=== PATIENT | female | born 1950 | race Caucasian/White ===

== ENCOUNTER 2017-07-27 17:38 | Emergency (ER) | payer OTHER ==
[~2017-07-27] VITALS: Ht 162.6 cm; Wt 95.3 kg
--- NOTE | ~2017-07-27 | EKG ---
[place] [address] [facility] [employer] [place] [address] ELECTROCARDIOGRAM REPORT Name: JESSY ANDERSON Room #: [facility]#: [id number] Admission: 07/27/17 Attend Phys: Discharge: 07/27/17 Date of : 54 Report #: [id number] THIS REPORT FOR: //name// [facility] ED Test Date: 2017-07-27 Test Time: 17:52:06 Pat Name: JESSY ANDERSON Department: Room: Gender: F Spanish Speaking Nanny: LUI : 1950 Requested By: Marizol Cunha Order Number: [id number] MD: Clint Shaikh Measurements Intervals [place] Rate: 80 P: 74 DE: 162 QRS: -16 QRSD: 99 T: 13 QT: 384 QTc: 443 Interpretive Statements Sinus rhythm Nonspecific ST segment abnormality Compared to ECG 05/31/2012 15:44:13 No significant changes Electronically Signed On 07-29-2017 8:43:44 [employer] by Clint Shaikh [email or web address] <ELECTRONICALLY SIGNED> By: Clint Shaikh MD, [facility] 07/29/17 [id number] Clint Shaikh MD, FACC /EPI
[~2017-07-27 17:38] MED LIST: PHENERGAN-CODE120 ML PO; TRIBENZOR 20-51 EACH; ZPAK PO
[2017-07-27 18:26] LABS: ABSOLUTE NEUTROPHILS 4.1 thou/uL (1.4-8.2); BASOPHILS 0.9 % (0.0-2.0); EOSINOPHILS 3.9 % (0.0-3.0); HEMATOCRIT 40.2 % (37.0-47.0); HEMOGLOBIN 13.6 gm/dL (12.0-15.0); LYMPHOCYTES 26.8 % (24.0-44.0); MCH 28.4 pg (26.0-34.0); MCHC 33.8 g/dL (28.0-37.0); MCV 83.9 fL (80.0-100.0); MONOCYTES 8.3 % (1.0-8.0); PLATELET COUNT 255 thou/uL (150-400); POLYS 60.1 % (36.0-66.0); RBC 4.79 mil/uL (4.20-5.00); RDW 13.6 % (10.5-14.5); WBC 6.8 thou/uL (4.0-11.0)
[2017-07-27 18:32] LABS: CALCIUM 9.4 mg/dL (8.5-10.1); CREATININE 0.7 mg/dL (0.6-1.0); POTASSIUM 3.6 mmol/L (3.5-5.1)
== END 2017-07-27 20:03 | disposition home or self-care (01) ==
LOC: ER 17:38
PROVIDERS: Emergency Medicine
DX: R06.00 Dyspnea, unspecified (principal); R06.02 Shortness of breath; Z88.5 Allergy status to narcotic agent; J45.909 Unspecified asthma, uncomplicated